=== PATIENT | female | born 2000 | race African-American/Black ===

== ENCOUNTER 2022-07-27 17:31 | Emergency (ER) | payer OTHER ==
[2022-07-27 18:12] VITALS: BP 115/63; PULSE 86; RESP 18; TEMP 98.6; BMI 25.7
[2022-07-27] MEDS ORDERED: SODIUM CHLORIDE 0.9% 500 ML INFUS.BAG IV ONE (18:17)
[2022-07-27] MEDS ORDERED: levETIRAcetam 500 MG/5 ML INJECTION VIAL IVPB ONE ×2 (18:18→18:28)
[2022-07-27 18:56] LABS: BASO % 0.4 % (0-2.0); EOS % 3.1 % (0-4.5); HEMATOCRIT 38.4 % (32.4-45.2); HEMOGLOBIN 12.7 GM/dL (10.7-15.3); LYMPH % 56.2 % (8-40); MCH 28.2 pg (25.7-33.7); MEAN CELL VOLUME 85.4 fl (80-96); MEAN PLT VOLUME 8.7 fl (7.5-11.1); MONO % 6.7 % (3.8-10.2); NEUT % 33.6 % (42.8-82.8); PLATELET COUNT 286 10^3/uL (134-434); RDW 15.7 % (11.6-15.6); WHITE BLOOD COUNT 6.5 K/mm3 (4.0-10.0)
[2022-07-27 19:15] LABS: ALBUMIN 4.4 g/dl (3.4-5.0); BLOOD UREA NITROGEN 7.7 mg/dL (7-18); CALCIUM 10.2 mg/dL (8.5-10.1)
[2022-07-27 19:18] LABS: CREATININE 0.9 mg/dL (0.55-1.3)
[2022-07-27 19:21] LABS: BILIRUBIN,TOTAL 0.3 mg/dL (0.2-1); TOT PROT 8.4 g/dl (6.4-8.2)
== END 2022-07-27 21:52 | disposition home or self-care (01) ==
LOC: JER 17:31
PROC: 3E033GC Introduction of Other Therapeutic Substance into Peripheral Vein, Percutaneous Approach (ICD-10-PCS; principal; 2022-07-27)
DX: G40.89 Other seizures (principal)
CPT/HCPCS: 36415; 80053; 80177; 84703; 85025; 93005; 93010; 99284-25